=== PATIENT | female | born 1965 | race Caucasian/White ===

== ENCOUNTER → 2024-05-04 | Emergency (ER) | payer OTHER ==
[~2024-05-04] VITALS: Ht 149.9 cm; Wt 71.7 kg
[~2024-05-04] MED LIST: ACETAMINOPHEN ES 500 MG TABLET ONE; CYCL10TA9 PO; CYCLOBENZAPRINE 10 MG TABLET ONE; IBUPROFEN 400 MG TABLET ONE; KETO10TA2 PO; LIDO30AD10 TP; LIDOCAINE 5% (PATCH) 1 EA PATCH TP ONE
[2024-05-04 14:25] VITALS: BP 168/126; TEMP 98.4; O2SAT 99
[2024-05-04] MEDS: CYCLOBENZAPRINE 10 MG TABLET PO ONE (15:31)
[2024-05-04] MEDS: IBUPROFEN 400 MG TABLET PO ONE (15:31)
[2024-05-04] MEDS: ACETAMINOPHEN ES 500 MG TABLET PO ONE (15:31)
[2024-05-04] MEDS: LIDOCAINE 5% (PATCH) 1 EA PATCH TP SCH (15:32)
== END | disposition home or self-care (01) ==
LOC: ER 14:25
DX: S00.83XA Contusion of other part of head, initial encounter (principal); S40.211A Abrasion of right shoulder, initial encounter; S80.212A Abrasion, left knee, initial encounter; M19.90 Unspecified osteoarthritis, unspecified site; M25.511 Pain in right shoulder; M25.562 Pain in left knee; R07.9 Chest pain, unspecified; R10.30 Lower abdominal pain, unspecified; V43.52XA Car driver injured in collision with other type car in traffic accident, initial encounter; Y93.89 Activity, other specified; Y92.488 Other paved roadways as the place of occurrence of the external cause; Y99.8 Other external cause status
CPT/HCPCS: 71045-TC